=== PATIENT | female | born 1950 | race Caucasian/White ===

== ENCOUNTER 2023-11-13 06:11 | Day surgery (SDC) | payer OTHER ==
[2023-11-12 13:06] VITALS: BMI 21.7
[2023-11-13] MEDS ORDERED: PROPOFOL 40 ML ONE (07:22)
[2023-11-13] MEDS ORDERED: Lidocaine 2% PF 5 ML VIAL ONE (07:22)
== END 2023-11-13 10:11 | disposition home or self-care (01) ==
LOC: SDC 06:11
PROVIDERS: ATTEND Internal Medicine Gastroenterology
DX: Z12.11 Encounter for screening for malignant neoplasm of colon (principal); D12.2 Benign neoplasm of ascending colon; K62.1 Rectal polyp; J44.9 Chronic obstructive pulmonary disease, unspecified; Z88.9 Allergy status to unspecified drugs, medicaments and biological substances; Z90.710 Acquired absence of both cervix and uterus; Z87.891 Personal history of nicotine dependence
CPT/HCPCS: 88305; J2001; J2704